=== PATIENT | male | born 1980 | race Asian ===

== ENCOUNTER 2018-04-18 09:05 | Emergency (ER) | payer SELFPAY ==
[~2018-04-18] VITALS: Ht 157.5 cm; Wt 54.2 kg
[2018-04-18 09:10] VITALS: BP 119/86
[2018-04-18] MEDS ORDERED: LIDOCAINE-MPF 1%, 5ML ONE (09:48)
[2018-04-18] MEDS ORDERED: LIDOCAINE-MPF 1%, 5ML INFIL ONE (10:00)
== END 2018-04-18 10:45 | disposition home or self-care (01) ==
LOC: ED 10:39
DX: K61.0 Anal abscess (principal)
CPT/HCPCS: 46050; 99284

== ENCOUNTER 2018-04-19 12:34 | Emergency (ER) | payer SELFPAY ==
[~2018-04-19] VITALS: Ht 160 cm; Wt 53.8 kg
[2018-04-19] MEDS ORDERED: MORPHINE SULFATE 4 MG/ML, 1ML ONE (13:29)
[2018-04-19] MEDS ORDERED: ONDANSETRON 2MG/ML, 2ML ONE (13:29)
[2018-04-19] MEDS ORDERED: ONDANSETRON 2MG/ML, 2ML IVPush ONE (13:30)
[2018-04-19] MEDS ORDERED: SODIUM CHLORIDE 0.9% 1,000ML IVBOLUS ONE (13:30)
[2018-04-19] MEDS ORDERED: SODIUM CHLORIDE FLUSH 10ML SYR IVF ONE (13:30)
[2018-04-19] MEDS ORDERED: MORPHINE SULFATE 4 MG/ML, 1ML IVPush PRN (13:30)
[2018-04-19 13:39] LABS: MEAN CORPUSCULAR HEMOGLOBIN 29.5 pg (27.5-34.5); MEAN CORPUSCULAR HGB CONC 33.5 g/dL (33.2-36.2); MEAN CORPUSCULAR VOLUME 88.2 fL (81-97); MEAN PLATELET VOLUME 7.9 fL (7.4-10.4); PLATELET COUNT 263 x10^3/uL (130-400); RED BLOOD COUNT 5.68 x10^6/uL (4.38-5.82); RED CELL DISTRIBUTION WIDTH 13.6 % (9.4-14.8)
[2018-04-19 13:46] LABS: ALANINE AMINOTRANSFERASE 25 U/L (12-78); ALBUMIN 3.3 g/dL (3.4-5.0); ANION GAP 6 mmol/L (5-15); CALCIUM 8.7 mg/dL (8.5-10.1); CHLORIDE 105 mmol/L (98-107); CREATININE 0.86 mg/dL (0.7-1.3)
[2018-04-19 13:49] LABS: ALKALINE PHOSPHATASE 55 U/L (45-117)
[2018-04-19 14:16] LABS: MD YES
[2018-04-19] MEDS ORDERED: OMNIPAQUE 350 MG/ML, 100ML BOTTLE ONE (14:16)
[2018-04-19 14:18] LABS: BAND#(MANUAL) 0.48 x10^3/uL; BANDS%(MANUAL) 3 % (0-7); EOS#(MANUAL) 0.16 x10^3/uL (0.0-0.4); EOS% (MANUAL) 1 % (1-7); LYMPH#(MANUAL) 1.91 x10^3/uL (1-3.4); LYMPHS% (MANUAL) 12 % (22-44); MONOS#(MANUAL) 1.11 x10^3/uL (0.3-2.7); MONOS% (MANUAL) 7 % (2-9); SEG#(MANUAL) 12.24 x10^3/uL (1.8-6.8); SEGS% (MANUAL) 77 % (42-75)
[2018-04-19 14:19] LABS: <PLATELET ESTIMATE> ADEQUATE; <PLT MORPHOLOGY> NORMAL PLT MORPH; <RBC MORPHOLOGY> NORMAL
[2018-04-19] MEDS ORDERED: AMPICILLIN/SULBACTAM 3 GM in SODIUM CHLORIDE 0.9% 100 ML IV ONE (15:00)
[2018-04-19 15:58] VITALS: BP 129/85
== END 2018-04-19 16:06 | disposition home or self-care (01) ==
LOC: ED 13:30
DX: K61.1 Rectal abscess (principal); F17.200 Nicotine dependence, unspecified, uncomplicated
CPT/HCPCS: 36415; 74177; 80053; 85025; 96365; 96375; 99284; J0295; J2405; J7030; Q9967; 46050